=== PATIENT | male | born 1965 | race Two or more races ===

== ENCOUNTER 2021-02-26 14:28 | Outpatient (CLI) | payer OTHER | END 2021-02-26 23:59 | disposition home or self-care (01) | LOC: LAB 14:28 | PROVIDERS: ATTEND Specialist | DX: Z01.812 Encounter for preprocedural laboratory examination (principal); Z20.822 Contact with and (suspected) exposure to COVID-19 | CPT/HCPCS: C9803; U0003 ==

== ENCOUNTER 2021-03-03 06:15 | Day surgery (SDC) | payer OTHER ==
[2021-03-03] MEDS ORDERED: methylPREDNISolone ACETATE 80 MG/ML VIAL ONE (07:00)
[2021-03-03] MEDS ORDERED: EPINEPHRINE (1:1000) 1 MG/ML AMPUL ONE ×2 (07:00→07:01)
[2021-03-03] MEDS ORDERED: LIDOCAINE 1% INJ 50 ML MDV IJ ONE (07:01)
[2021-03-03] MEDS ORDERED: FENTANYL PF 100MCG/2ML AMPUL ONE ×2 (07:30→10:01)
[2021-03-03] MEDS ORDERED: MIDAZOLAM HCL 2 MG/2ML VIAL ONE (07:30)
[2021-03-03] MEDS ORDERED: BUPIVACAINE 0.25% 75 MG/30 ML VIAL ONE (07:32)
[2021-03-03] MEDS ORDERED: LIDOCAINE 1%-EPI 1:100,000 20 ML VIAL ONE (07:33)
[2021-03-03] MEDS ORDERED: ROCURONIUM BROMIDE 50 MG/5 ML ONE (08:39)
[2021-03-03] MEDS ORDERED: HYDROMORPHONE INJ 2 MG/ML DISP.SYRIN ONE (09:41)
[2021-03-03] MEDS ORDERED: HYDROCODONE/APAP 5/325MG TABLET ONE (09:55)
== END 2021-03-03 11:50 | disposition home or self-care (01) ==
LOC: DS 06:15
PROVIDERS: ATTEND Specialist
DX: M75.41 Impingement syndrome of right shoulder (principal); M77.8 Other enthesopathies, not elsewhere classified; I10 Essential (primary) hypertension; N40.0 Benign prostatic hyperplasia without lower urinary tract symptoms; J45.909 Unspecified asthma, uncomplicated; E66.3 Overweight; Z79.899 Other long term (current) drug therapy
CPT/HCPCS: 29826; 29827; 29828; A4217; C1713; J0171 ×2; J0330; J0690; J1100; J1170; J1885; J2250; J2405; J3010 ×2; J3490 ×4; J1040

== ENCOUNTER 2021-09-10 11:26 | Outpatient (CLI) | payer OTHER | END 2021-09-10 23:59 | disposition home or self-care (01) | LOC: LAB 11:26 | PROVIDERS: ATTEND Specialist | DX: Z01.812 Encounter for preprocedural laboratory examination (principal); Z20.822 Contact with and (suspected) exposure to COVID-19 | CPT/HCPCS: C9803; U0003 ==

== ENCOUNTER 2021-09-15 07:06 | Day surgery (SDC) | payer OTHER ==
[2021-09-15] MEDS ORDERED: KETAMINE HCL (500MG/10ML) 50 MG/ML VIAL ONE (08:14)
[2021-09-15] MEDS ORDERED: ANESTHESIA TRAY IN PYXIS 1 EA TRAY MC ONE (08:21)
== END 2021-09-15 10:00 | disposition home or self-care (01) ==
LOC: DS 07:06
PROVIDERS: ATTEND Specialist
DX: M24.611 Ankylosis, right shoulder (principal); I10 Essential (primary) hypertension; Z98.890 Other specified postprocedural states; Z79.899 Other long term (current) drug therapy
CPT/HCPCS: 23700; J3490; J0360; J7030